=== PATIENT | male | born 1965 | race Caucasian/White ===

== ENCOUNTER 2016-10-12 02:46 | Emergency (ER) | payer MEDICAID ==
[2016-10-12 02:54] VITALS: TEMP 100.8
[2016-10-12] MEDS ORDERED: IPRATROPIUM/ALBUTEROL 3 ML DEYVIAL ONE (02:59)
--- NOTE | 2016-10-12 03:09 | EDPHY ---
H & P Stated Complaint: dyspnea HPI/ROS: HPI CHIEF COMPLAINT: Shortness of breath, cough, COPD HISTORY OF PRESENT ILLNESS: This patient very pleasant 51-year-old male he is homeless, he has significant past medical history for COPD, not on oxygen, obstructive sleep apnea, hepatitis-C, chronic bronchitis, and presents to the emergency room with shortness of breath progressively worse over the past 5 days. Patient tells me that the past 5 days he has had progressively worsening shortness of breath with wheezing and cough with yellow productive sputum he does admit to having chills and possibly fever. Does endorse smoking VAPE pens as well as cigarettes. Occasional marijuana denies any other illicit drugs Past Medical History: COPD, obstructive sleep apnea, chronic bronchitis, hepatitis-C Past Surgical History: Denies any significant surgical history Social History: Daily tobacco use, marijuana use, VAPE PEN Family History: Noncontributory ROS REVIEW OF SYSTEMS: A comprehensive 10 point review of systems is otherwise negative aside from elements mentioned in the history of present illness. Exam Constitutional triage nursing summary reviewed, vital signs reviewed, awake/ alert. Eyes normal conjunctivae and sclera, EOMI, PERRLA. HENT normal inspection, atraumatic, moist mucus membranes, no epistaxis, neck supple/ no meningismus, no raccoon eyes. Respiratory increased work of breathing, faint wheezing bilaterally, decreased breath sounds bilaterally, Cardiovascular rate normal, regular rhythm, no murmur, no edema, distal pulses normal. Gastrointestinal soft, non-tender, no rebound, no guarding, normal bowel sounds, no distension, no pulsatile mass. Genitourinary no CVA tenderness. Musculoskeletal no midline vertebral tenderness, full range of motion, no calf swelling, no tenderness of extremities, no meningismus, good pulses, neurovascularly intact. Skin pink, warm, & dry, no rash, skin atraumatic. Neurologic awake, alert and oriented x 3, AAOx3, moves all 4 extremities equally, motor intact, sensory intact, CN II-XII intact, normal cerebellar, normal vision, normal speech. Psychiatric normal mood/affect. Heme/Lymph/Immune no lymphadenopathy. Differential Diagnosis: Includes but is not limited to in a particular order, COPD exacerbation, pneumonia, pneumothorax, CHF, bronchitis, reactive airway disease, doubt acute coronary syndrome Medical Decision Making: The patient had an IV established receive fluid bolus , IV Solu-Medrol, IV Levaquin, however DuoNeb breathing treatment. We will obtain a two view chest x-ray, EKG, troponin. We will re-evaluate him. Re-evaluation: EKG interpretation by me on record in [employer] system. Impression time of EKG 3:24 a.m., sinus rhythm rate of 86 left anterior fascicular block present. ED x-ray chest two view: I do not appreciate a focal pneumonia. There is peribronchial thickening. No pneumothorax. Cardiac silhouette normal in size. 0416: re-examination at this time he is resting comfortably denies chest pain shortness of breath is greatly improved after DuoNeb breathing treatment. He is receiving IV Solu-Medrol, IV fluid bolus and IV Levaquin at this time. His vitals at this time are pulse ox 92% on 1 L, blood pressure 149/91, heart rate 84. Respiratory rate 14. 0440: re-examination at this time is resting comfortably has no complaints he feels much better. He is now off oxygen satting 91-92% on room air. Resting comfortably no tachypnea. He is agreeable for discharge. He is requesting a prescription for albuterol and Advair. I explained him I will give him a prescription for Levaquin, prednisone for 5 days, Advair and albuterol. He does understand if develops worsening symptoms including worsening shortness of breath return to the emergency room. He is agreeable for this. Re-examination at this time of his lungs are clear. No wheezing. Good air movement. Source: Patient - Personal History Current Tetanus/Diphtheria Vaccine: Yes - Medical/Surgical History Hx Asthma: No Hx Chronic Respiratory Disease: Yes Hx Diabetes: No Hx Cardiac Disease: No Hx Renal Disease: No Hx Cirrhosis: No Hx Alcoholism: No Hx HIV/AIDS: No Hx Splenectomy or Spleen Trauma: No Other PMH: HEP C, HTN, ADHD, ANXIETY, COPD, chronic bronchitis, VIDAL - Social History Smoking Status: Current every day smoker Constitutional: Initial Vital Signs Temperature (C) 38.2 C 10/12/16 02:51 Heart Rate 85 10/12/16 02:51 Respiratory Rate 24 H 10/12/16 02:51 Blood Pressure 163/87 H 10/12/16 02:51 O2 Sat (%) 91 L 10/12/16 02:51 O2 Delivery Mode Nasal Cannula O2 (L/minute) 2 Allergies/Adverse Reactions: codeine Allergy (Verified 06/10/14 15:06) Home Medications: Medication Instructions Recorded Advair Hfa 115-21 Mcg Inhaler 10/12/16 Albuterol 10/12/16 Fluticasone/Salmeter 250/50Mcg 1 puffs IH BID #1 disk 10/12/16 [Advair 250/50 (*)] Spiriva Respimat 10/12/16 levOFLOXACIN [levAQUIN (*)] 500 mg PO DAILY #7 tab 10/12/16 predniSONE 60 mg PO DAILY #15 tab 10/12/16 Medical Decision Making - Data Points Laboratory Results: Laboratory Results 10/12/16 03:30 10/12/16 03:30 10/12/16 03:30 WBC 8.74 10^3/uL (3.80-9.50) RBC 4.78 10^6/uL (4.40-6.38) Hgb 14.9 g/dL (13.7-17.5) Hct 43.2 % (40.0-51.0) MCV 90.4 fL (81.5-99.8) MCH 31.2 pg (27.9-34.1) MCHC 34.5 g/dL (32.4-36.7) RDW 11.4 L % (11.5-15.2) Plt Count 265 10^3/uL (150-400) MPV 8.8 fL (8.7-11.7) Neut % (Auto) 67.5 % (39.3-74.2) Lymph % (Auto) 17.6 % (15.0-45.0) Keith % (Auto) 13.3 H % (4.5-13.0) Eos % (Auto) 0.3 L % (0.6-7.6) Baso % (Auto) 0.3 % (0.3-1.7) Nucleat RBC Rel Count 0.0 % (0.0-0.2) Absolute Neuts (auto) 5.89 10^3/uL (1.70-6.50) Absolute Lymphs (auto) 1.54 10^3/uL (1.00-3.00) Absolute Monos (auto) 1.16 H 10^3/uL (0.30-0.80) Absolute Eos (auto) 0.03 10^3/uL (0.03-0.40) Absolute Basos (auto) 0.03 10^3/uL (0.02-0.10) Absolute Nucleated RBC 0.00 10^3/uL (0-0.01) Immature Gran % 1.0 % (0.0-1.1) Immature Gran # 0.09 10^3/uL (0.00-0.10) PT 13.5 SEC (12.0-15.0) INR 1.04 (0.83-1.16) APTT 28.9 SEC (23.0-38.0) Sodium 140 mEq/L (134-144) Potassium 4.2 mEq/L (3.5-5.2) Chloride 108 mEq/L (97-110) Carbon Dioxide 21 L mEq/l (22-31) Anion Gap 11 mEq/L (8-16) BUN 19 mg/dL (7-23) Creatinine 0.8 mg/dL (0.7-1.3) Estimated GFR > 60 Glucose 112 H mg/dL (70-100) Calcium 7.8 L mg/dL (8.5-10.4) Magnesium 2.0 mg/dL (1.6-2.3) Total Bilirubin 0.7 mg/dL (0.1-1.4) Conjugated Bilirubin 0.6 H mg/dL (0.0-0.5) Unconjugated Bilirubin 0.1 mg/dL (0.0-1.1) AST 48 IU/L (17-59) ALT 64 IU/L (21-72) Alkaline Phosphatase 61 IU/L (38-126) Creatine Kinase 236 H IU/L (0-224) CK-MB (CK-2) Fraction 1.54 ng/mL (0-3.19) CK-MB (CK-2) % 0.7 % (0.0-4.0) Creatine Kinase Interp NEGATIVE (NEGATIVE) Troponin I < 0.012 ng/mL (0-0.034) NT-Pro-B Natriuret Pep 250 H pg/mL (0-125) Total Protein 6.9 g/dL (6.3-8.2) Albumin 3.4 L g/dL (3.5-5.0) Lipase 180.0 IU/L (23-300) Medications Given: Discontinued Medications Sodium Chloride (Ns) 1,000 mls @ 0 mls/hr IV ONCE ONE PRN Reason: As Directed Stop: 10/12/16 03:14 Last Admin: 10/12/16 03:57 Dose: 1,000 mls Methylprednisolone Sodium Succinate (Solu-Medrol) 125 mg IVP EDNOW ONE Stop: 10/12/16 03:15 Last Admin: 10/12/16 03:34 Dose: 125 mg Departure - Departure Disposition: Home, Routine, Self-Care Clinical Impression: Acute bronchitis Qualifiers: Bronchitis organism: unspecified organism Qualifier Code: (J20.9) Acute bronchitis, unspecified Condition: Good Instructions: Acute Bronchitis (ED), COPD (Chronic Obstructive Pulmonary Disease) (ED) Additional Instructions: 1. return emergency room if develops any worsening symptoms questions or concerns. Referrals: Floridalma Enriquez MD [Primary Care Provider] - As per Instructions Prescriptions: Fluticasone/Salmeter 250/50Mcg [Advair 250/50 (*)] 1 puffs IH BID #1 disk levOFLOXACIN [levAQUIN (*)] 500 mg PO DAILY #7 tab predniSONE 60 mg PO DAILY #15 tab
[2016-10-12] MEDS ORDERED: NS 1,000 ML IV ONE (03:13)
[2016-10-12] MEDS ORDERED: IPRATROPIUM/ALBUTEROL 3 ML DEYVIAL IH ONE (03:14)
[2016-10-12] MEDS ORDERED: methylPREDNISolone SOD SUCC 125 MG/2 ML VIAL IVP ONE (03:14)
--- NOTE | 2016-10-12 03:26 | CPEKG ---
Heart Rate: 86 RR Interval: 698 P-R Interval: 140 QRSD Interval: 90 QT Interval: 332 QTC Interval: 397 P [place]: 7 QRS [place]: -56 T Wave [place]: 68 EKG Severity - ABNORMAL ECG - EKG Impression: SINUS RHYTHM EKG Impression: LEFT ANTERIOR FASCICULAR BLOCK EKG Impression: ANTERIOR INFARCT, AGE INDETERMINATE Electronically Signed By: Britt Bowie 12-Oct-2016 22:32:00
[2016-10-12 03:46] LABS: ABSOLUTE IMMATURE GRANULOCYTES 0.09 10^3/uL (0.00-0.10); ADD DIFF? NO; ADD MORPH? NO; ADD SCAN? NO; APTT 28.9 SEC (23.0-38.0); ATYPICAL LYMPHOCYTE FLAG 40 (0-99); FRAGMENT RBC FLAG 0 (0-99); HEMATOCRIT 43.2 % (40.0-51.0); HEMOGLOBIN 14.9 g/dL (13.7-17.5); INR 1.04 (0.83-1.16); LEFT SHIFT FLG 10 (0-99); LIPEMIA HEMOLYSIS FLAG 90 (0-99); MEAN CELL HEMOGLOBIN 31.2 pg (27.9-34.1); MEAN CELL HEMOGLOBIN CONCENTR. 34.5 g/dL (32.4-36.7); MEAN CELL VOLUME 90.4 fL (81.5-99.8); MEAN PLATELET VOLUME 8.8 fL (8.7-11.7); PLATELET CLUMPS FLAG 0 (0-99); PLATELET COUNT 265 10^3/uL (150-400); PROTIME(PATIENT) 13.5 SEC (12.0-15.0); RED BLOOD CELL COUNT 4.78 10^6/uL (4.40-6.38); RED CELL DISTRIBUTION WIDTH 11.4 % (11.5-15.2)
[2016-10-12 03:56] LABS: ALANINE AMINOTRANSFERASE 64 IU/L (21-72); ALBUMIN 3.4 g/dL (3.5-5.0); ALKALINE PHOSPHATASE 61 IU/L (38-126); ANION GAP 11 mEq/L (8-16); ASPARTATE AMINOTRANSFERASE 48 IU/L (17-59); BILIRUBIN,TOTAL 0.7 mg/dL (0.1-1.4); BILIRUBIN-CONJUGATED 0.6 mg/dL (0.0-0.5); BILIRUBIN-UNCONJUGATED 0.1 mg/dL (0.0-1.1); CALCIUM 7.8 mg/dL (8.5-10.4); CARBON DIOXIDE 21 mEq/l (22-31); CHLORIDE 108 mEq/L (97-110); CREATININE 0.8 mg/dL (0.7-1.3); GLOMERULAR FILTRATION RATE > 60; GLUCOSE 112 mg/dL (70-100); POTASSIUM 4.2 mEq/L (3.5-5.2); SODIUM 140 mEq/L (134-144); TOTAL PROTEIN 6.9 g/dL (6.3-8.2)
[2016-10-12 04:07] LABS: CK-MB INTERPRETATION NEGATIVE (NEGATIVE); CREATINE KINASE-MB FRACTION 1.54 ng/mL (0-3.19); TROPONIN I < 0.012 ng/mL (0-0.034)
[2016-10-12] MEDS ORDERED: ALBUTEROL INH PREPACK MDI TAKEHOME ONE (05:08)
[2016-10-12 05:45] VITALS: BP 151/67; PULSE 77; RESP 15; O2SAT 90
--- NOTE | 2016-10-12 09:36 | DX ---
PA and Lateral Chest History: Chest pain in a 51-year-old male; comparison prior study October 09, 2014. Findings: The heart and mediastinum are normal. Pulmonary vascularity is normal. The lungs are clear. Peribronchial thickening is seen. Stable elevation of the right hemidiaphragm is noted. There is no pleural fluid. A pneumothorax is no t identified. Impression: Query airways disease.
== END 2016-10-12 05:45 | disposition home or self-care (01) ==
DX: J20.9 Acute bronchitis, unspecified (principal); J44.9 Chronic obstructive pulmonary disease, unspecified; I10 Essential (primary) hypertension; F17.200 Nicotine dependence, unspecified, uncomplicated
CPT/HCPCS: 96365; 96366; J1956

== ENCOUNTER 2018-06-15 11:27 | Emergency (ER) | payer MEDICAID ==
[2018-06-15] MEDS ORDERED: IBUPROFEN 800 MG TAB PO ONE (11:51)
--- NOTE | 2018-06-15 11:59 | EDPHY ---
H & P Stated Complaint: "hard to keep breathing", "I feel like shit" Time Seen by Provider: 06/15/18 11:46 HPI/ROS: CHIEF COMPLAINT: I feel like shit HISTORY OF PRESENT ILLNESS: The patient is a 52-year-old homeless man who was being arrested and is brought to the ER for medical clearance. He told them that he "feels like shit". When I asked him to be more specific he told me that he has "this Respiratory thing". He has a history of COPD. Also obstructive sleep apnea. When I entered the room he was snoring and saturating in the mid 80s but when I woke him up he was saturating at 97% on room air. No wheezing. No recent fevers. No cough. He also complained to me of chronic paresthesias and pain in his lower legs. He states that this is unchanged from baseline. He is able to ambulate. No focal weakness or deficits. No back pain. No headache. No fever. Severity: Moderate Modifying factors: None REVIEW OF SYSTEMS: Constitutional: denies: chills, fever, recent illness, recent injury EENTM: denies: blurred vision, double vision, nose congestion Respiratory: See HPI Cardiac: denies: chest pain, irregular heart rate, lightheadedness, palpitations Gastrointestinal/Abdominal: denies: abdominal pain, diarrhea, nausea, vomiting, blood streaked stools Genitourinary: denies: dysuria, frequency, hematuria, pain Musculoskeletal: See HPI Skin: denies: lesions, rash, jaundice, bruising Neurological: denies: headache, numbness, paresthesia, tingling, dizziness, weakness Hematologic/Lymphatic: denies: blood clots, easy bleeding, easy bruising Immunologic/allergic: denies: HIV/AIDS, transplant 10 systems reviewed and negative except as noted EXAM: GENERAL: Disheveled in no acute distress. HEAD: Atraumatic, normocephalic. EYES: Pupils equal round and reactive to light, extraocular movements intact, sclera anicteric, conjunctiva are normal. ENT: TMs normal, nares patent, oropharynx clear without exudates. Moist mucous membranes. NECK: Normal range of motion, supple without lymphadenopathy or JVD. LUNGS: Breath sounds clear to auscultation bilaterally and equal. No wheezes rales or rhonchi. HEART: Regular rate and rhythm without murmurs, rubs or gallops. ABDOMEN: Soft, nontender, normoactive bowel sounds. No guarding, no rebound. No masses appreciated. BACK: No CVA tenderness, no spinal tenderness, step-offs or deformities EXTREMITIES: Normal range of motion, no pitting or edema. No clubbing or cyanosis. NEUROLOGICAL: Cranial nerves II through XII grossly intact. Normal speech, normal gait. 5/5 strength, normal movement in all extremities, normal sensation , normal reflexes PSYCH: Normal mood, normal affect. SKIN: Warm, dry, normal turgor, no visible rashes or lesions. Source: Patient Exam Limitations: No limitations - Personal History Current Tetanus/Diphtheria Vaccine: Yes Tetanus Vaccine Date: 2013 - Medical/Surgical History Hx Asthma: No Hx Chronic Respiratory Disease: Yes Hx Diabetes: No Hx Cardiac Disease: No Hx Renal Disease: No Hx Cirrhosis: No Hx Alcoholism: No Hx HIV/AIDS: No Hx Splenectomy or Spleen Trauma: No Other PMH: HEP C, HTN, ADHD, ANXIETY, COPD, chronic bronchitis, VIDAL - Social History Smoking Status: Current every day smoker Alcohol Use: Heavy Constitutional: Initial Vital Signs Temperature (C) 36.4 C 06/15/18 11:34 Heart Rate 80 06/15/18 11:34 Respiratory Rate 16 06/15/18 11:34 Blood Pressure 131/84 H 06/15/18 11:34 O2 Sat (%) 95 06/15/18 11:34 O2 Delivery Mode Room Air Allergies/Adverse Reactions: codeine Allergy (Verified 06/10/14 15:06) Home Medications: Medication Instructions Recorded Advair Hfa 115-21 Mcg Inhaler 10/12/16 Albuterol 10/12/16 Fluticasone/Salmeter 250/50Mcg 1 puffs IH BID #1 disk 10/12/16 [Advair 250/50 (*)] Spiriva Respimat 10/12/16 levOFLOXACIN [levAQUIN (*)] 500 mg PO DAILY #7 tab 10/12/16 predniSONE 60 mg PO DAILY #15 tab 10/12/16 Medical Decision Making - Diagnostics Imaging: Discussed imaging studies w/ call manager Radiologist ED Course/Re-evaluation: 12:30 p.m. the patient's x-rays reassuring. His vital signs are normal. He does desaturate asleep which is his baseline. Do not see any abnormalities in his legs. He states that his pain there is chronic and unchanged. I will discharge him at this time to the snf. Differential Diagnosis: Partial list of the Differential diagnosis considered include but were not limited to; COPD exacerbation, bronchitis, pneumonia and although unlikely based on the history and physical exam, I also considered PE, acute coronary disease, infection. I discussed these differential diagnoses and the plan with the patient as well as the usual and expected course. The patient understands that the diagnosis is provisional and that in medicine we are not always correct and that further workup is often warranted. Usual and customary warnings were given. All of the patient's questions were answered. The patient was instructed to return to the emergency department should the symptoms at all worsen or return, otherwise to followup with the physician as we discussed. - Data Points Medications Given: Discontinued Medications Ibuprofen (Motrin) 800 mg PO EDNOW ONE Stop: 06/15/18 11:52 Last Admin: 06/15/18 11:54 Dose: Not Given Departure - Departure Disposition: Home, Routine, Self-Care Clinical Impression: Obstructive sleep apnea Condition: Good Instructions: Sleep Apnea (DC) Referrals: Patient,NotPresent [Primary Care Provider] - As per Instructions
[2018-06-15 12:45] VITALS: BP 125/78
== END 2018-06-15 12:47 | disposition home or self-care (01) ==
LOC: EDBD → EDUNIT#
DX: G47.33 Obstructive sleep apnea (adult) (pediatric) (principal); J44.9 Chronic obstructive pulmonary disease, unspecified; B19.20 Unspecified viral hepatitis C without hepatic coma; I10 Essential (primary) hypertension; Z59.0 Homelessness; F17.200 Nicotine dependence, unspecified, uncomplicated